=== PATIENT | male | born 1950 | race Caucasian/White ===

== ENCOUNTER 2023-07-11 11:09 | Emergency (ER) | payer BC, MEDICARE ==
[~2023-07-11] VITALS: Ht 180.3 cm; Wt 96.8 kg
[2023-07-11] MEDS ORDERED: FURO40TA2 PO (11:24)
[2023-07-11] MEDS ORDERED: POTA10CA60 PO (11:24)
[2023-07-11] MEDS ORDERED: LOSA25TA13 PO (11:24)
[2023-07-11] MEDS ORDERED: ELIQ5TAB PO (11:24)
[2023-07-11] MEDS ORDERED: METO1TAB7 PO (11:24)
[2023-07-11] MEDS ORDERED: CRES10TA PO (11:24)
[2023-07-11 12:02] LABS: HEMATOCRIT 40.8 % (42.0-52.0); HEMOGLOBIN 13.5 g/dl (13.5-17.5); MEAN CORPUSCULAR HEMOGLOBIN 31.3 pg (27.0-33.0); MEAN CORPUSCULAR HGB CONC 33.1 g/dl (32.0-36.5); MEAN CORPUSCULAR VOLUME 94.7 fl (80.0-96.0); PLATELET COUNT, AUTOMATED 210 10^3/uL (150-450); RED BLOOD COUNT 4.31 10^6/uL (4.30-6.10); WHITE BLOOD COUNT 10.9 10^3/uL (4.0-10.0)
[2023-07-11 12:30] LABS: BLOOD UREA NITROGEN 21 MG/DL (9-23); CALCIUM LEVEL 8.7 MG/DL (8.3-10.6); CARBON DIOXIDE LEVEL 25 MMOL/L (20-31); CHLORIDE LEVEL 108 MMOL/L (98-107); CREATININE FOR GFR 1.05 MG/DL (0.70-1.30); GLOMERULAR FILTRATION RATE > 60.0 (>42); GLUCOSE, FASTING 115 MG/DL (74-106); MAGNESIUM LEVEL 1.8 MG/DL (1.8-2.4); SODIUM LEVEL 142 MMOL/L (136-145)
[2023-07-11 12:32] LABS: THYROID STIMULATING HORMONE 2.048 uIU/ML (0.55-4.78)
[2023-07-11] MEDS: DIGOXIN INJ 0.5 MG/2 ML AMP IV ONE ×3 (12:32→14:44)
[2023-07-11] MEDS ORDERED: POTA-298 PO (14:06)
[2023-07-11] MEDS ORDERED: SILD20TA11 PO (14:06)
[2023-07-11] MEDS ORDERED: COLC0.6T47 PO (14:06)
[2023-07-11] MEDS ORDERED: HOME MED LIST COMPLETE! XX SCH (14:10)
[2023-07-11] MEDS ORDERED: DIGO0.123 PO (16:31)
[2023-07-11 17:00] VITALS: BP 124/77; TEMP 97.9; O2SAT 98
== END 2023-07-11 17:19 | disposition home or self-care (01) ==
LOC: M ED 11:09
DX: I48.20 Chronic atrial fibrillation, unspecified (principal); E78.5 Hyperlipidemia, unspecified; F10.10 Alcohol abuse, uncomplicated; Z86.16 Personal history of COVID-19; Z79.01 Long term (current) use of anticoagulants; Z79.811 Long term (current) use of aromatase inhibitors; Z79.899 Other long term (current) drug therapy
CPT/HCPCS: 71045; 80048; 83735; 84443; 85027; 93005; 96374; 96376; 99284; J1160

== ENCOUNTER 2023-07-25 20:30 | Inpatient (IN) | payer MEDICARE ==
[~2023-07-25] VITALS: Ht 180.3 cm; Wt 96.1 kg
[~2023-07-25 20:30] MED LIST: COLC0.6T47 PO; CRES10TA PO; DIGO0.123 PO; ELIQ5TAB PO; FURO40TA2 PO; LOSA25TA13 PO; METO1TAB7 PO; POTA-298 PO; POTA10CA70 PO; SILD20TA11 PO
[2023-07-25 21:04] LABS: BASO # 0.1 10^3/uL (0.0-0.2); BASO % 0.6 % (0.0-1.0); EOS # 0.1 10^3/uL (0.0-0.5); EOS % 0.5 % (0.0-3.0); HEMATOCRIT 43.1 % (42.0-52.0); HEMOGLOBIN 14.2 g/dl (13.5-17.5); LYMPH # 1.9 10^3/uL (1.5-5.0); LYMPH % 15.4 % (24.0-44.0); MEAN CORPUSCULAR HEMOGLOBIN 31.5 pg (27.0-33.0); MEAN CORPUSCULAR HGB CONC 32.9 g/dl (32.0-36.5); MEAN CORPUSCULAR VOLUME 95.6 fl (80.0-96.0); MONO # 1.1 10^3/uL (0.0-0.8); MONO % 8.5 % (2.0-8.0); NEUTROPHILS # 9.4 10^3/uL (1.5-8.5); NEUTROPHILS % 74.5 % (36.0-66.0); PLATELET COUNT, AUTOMATED 295 10^3/uL (150-450); RED BLOOD COUNT 4.51 10^6/uL (4.30-6.10); WHITE BLOOD COUNT 12.5 10^3/uL (4.0-10.0)
[2023-07-25 21:30] LABS: CK-MB VALUE MASS < 1.0 NG/ML (<3.6)
[2023-07-25 21:31] LABS: ALBUMIN 3.9 G/DL (3.2-5.2); ALKALINE PHOSPHATASE 78 U/L (46-116); ALT/SGPT 39 U/L (7.0-40); AST/SGOT 26 U/L (<34); BILIRUBIN,DIRECT 0.4 MG/DL (<0.4); BLOOD UREA NITROGEN 34 MG/DL (9-23); CALCIUM LEVEL 8.8 MG/DL (8.3-10.6); CARBON DIOXIDE LEVEL 28 MMOL/L (20-31); CHLORIDE LEVEL 104 MMOL/L (98-107); CREATININE FOR GFR 1.51 MG/DL (0.70-1.30); GLOMERULAR FILTRATION RATE 48.7 (>42); GLUCOSE, FASTING 113 MG/DL (74-106); POTASSIUM SERUM 4.7 MMOL/L (3.5-5.1); SODIUM LEVEL 141 MMOL/L (136-145); TOTAL PROTEIN 7.3 G/DL (5.7-8.2)
[2023-07-25 21:34] LABS: THYROXINE (T4) 8.4 UG/DL (4.5-10.9)
[2023-07-25 21:35] LABS: THYROID STIMULATING HORMONE 11.769 uIU/ML (0.55-4.78)
[2023-07-25 21:45] LABS: CPK CREATINE PHOSPHOKINASE 83 U/L (46-171)
[2023-07-25] MEDS: DIGOXIN 0.25 MG TAB PO STA (23:04)
[2023-07-25 23:44] LABS: CK-MB VALUE MASS < 1.0 NG/ML (<3.6)
[2023-07-25 23:49] LABS: CPK CREATINE PHOSPHOKINASE 72 U/L (46-171); MB/CK RELATIVE INDEX 1.38 (< OR =4)
[2023-07-25] MEDS ORDERED: METO1TAB32 PO (23:58)
[2023-07-25] MEDS ORDERED: AMIO200T49 PO (23:58)
[2023-07-26] VITALS (8 sets, daily range): BP systolic 92–139; BP diastolic 58–98; TEMP 97.2–98.5; O2SAT 94–100
[2023-07-26] MEDS ORDERED: HOME MED LIST COMPLETE! XX SCH
[2023-07-26] MEDS: NS 1,000 ML IV SCH (08:54)
[2023-07-26] MEDS ORDERED: POTASSIUM CHLORIDE 10MEQ SR TABLET PO SCH (09:00)
[2023-07-26] MEDS: METOPROLOL SUCC (TopROL XL) 50MG **XL** TAB PO SCH (10:25)
[2023-07-26] MEDS: METOPROLOL SUCC *XL* 25MG TAB (TopROL *XL*) PO SCH (10:26)
[2023-07-26] MEDS: APIXABAN 5 MG TAB (ELIQUIS) PO SCH (10:29)
[2023-07-26] MEDS: AMIODARONE 200 MG TAB (PACERONE) PO SCH (10:29)
[2023-07-26] MEDS: NS 500 ML IV SCH (16:56)
[2023-07-26] MEDS: ROSUVASTATIN 10 MG TAB (CRESTOR) PO SCH (20:24)
[2023-07-27 04:00] VITALS: BP 118/64; TEMP 98.9; O2SAT 97
[2023-07-27 07:48] VITALS: BP 119/84; TEMP 98.2; O2SAT 96
[2023-07-27] MEDS: COLCHICINE 0.6 MG TABLET PO PRN (10:48)
[2023-07-27 12:00] VITALS: BP 117/85; TEMP 99.3; O2SAT 97
[2023-07-27 16:00] VITALS: BP 126/76; TEMP 98.8; O2SAT 98
[2023-07-27 17:16] LABS: BLOOD UREA NITROGEN 21 MG/DL (9-23); CALCIUM LEVEL 8.5 MG/DL (8.3-10.6); CARBON DIOXIDE LEVEL 26 MMOL/L (20-31); CHLORIDE LEVEL 106 MMOL/L (98-107); CREATININE FOR GFR 1.23 MG/DL (0.70-1.30); GLOMERULAR FILTRATION RATE > 60.0 (>42); GLUCOSE, FASTING 107 MG/DL (74-106); MAGNESIUM LEVEL 2.1 MG/DL (1.8-2.4); POTASSIUM SERUM 4.6 MMOL/L (3.5-5.1); SODIUM LEVEL 141 MMOL/L (136-145)
[2023-07-27 18:05] VITALS: BP 106/72; TEMP 98.6; O2SAT 97
[2023-07-27] MEDS ORDERED: PHENYLephrine 500MCG 5ML (100MCG/ML) SYRINGE As Ordered ONE (19:06)
[2023-07-27] MEDS ORDERED: LIDOCAINE 2% 100MG/5ML SDV (FOR ANES.) As Ordered ONE (19:07)
[2023-07-27] MEDS ORDERED: propofoL 200 MG/20 ML VIAL As Ordered ONE (19:07)
[2023-07-27 19:56] VITALS: BP 112/70; TEMP 97; O2SAT 95
[2023-07-28 00:39] VITALS: BP 116/78; TEMP 99.8; O2SAT 96
[2023-07-28 03:53] VITALS: BP 110/75; TEMP 98.3; O2SAT 95
[2023-07-28 07:58] VITALS: BP 112/73; TEMP 97.4; O2SAT 98
[2023-07-28 08:35] VITALS: BP 112/73
== END 2023-07-28 13:39 | disposition home or self-care (01) | DRG 309 ==
LOC: M ED 20:30 → M ED INP 23:05 → M PCU 07-26 02:33 → OBSVTOIN 07-26 11:11
PROVIDERS: ADMIT Internal Medicine; ATTEND Internal Medicine
PROC: 5A2204Z Restoration of Cardiac Rhythm, Single (ICD-10-PCS; principal; 2023-07-27 15:00)
DX: I48.19 Other persistent atrial fibrillation (principal); I50.22 Chronic systolic (congestive) heart failure; M10.9 Gout, unspecified; I42.8 Other cardiomyopathies; I95.9 Hypotension, unspecified; I47.29 Other ventricular tachycardia; E86.0 Dehydration; Z79.899 Other long term (current) drug therapy